=== PATIENT | female | born 1975 | race Caucasian/White ===

== ENCOUNTER → 2017-11-09 09:48 | Outpatient (CLI) | payer OTHER, SELFPAY ==
[2017-11-09 10:13] LABS: Albumin, Serum 3.4 g/dL (3.2-5.0); BUN 12 mg/dL (7-18); BUN/Creat Ratio 10.5 RATIO (10-20); Calcium,Total 8.5 mg/dL (8.5-10.1); Chloride 104 mmol/L (98-107); Creatinine, Serum 1.14 mg/dL (0.55-1.02); EST Glomerular Filtration Rate 55 mL/min (>60); Est Glom Filt Rate - Afr Amer 67 mL/min (>60); Glucose 115 mg/dL (74-106); Phosphorus 3.5 mg/dL (2.5-4.9); Potassium 3.6 mmol/L (3.5-5.1); Sodium Level 137 mmol/L (136-145)
== END ==
PROVIDERS: Family Provider Nurse Practitioner Family; PCP Nurse Practitioner Family; Visit Provider Internal Medicine Nephrology
DX: N18.2 Chronic kidney disease, stage 2 (mild) (principal)
CPT/HCPCS: 36415; 80069

== ENCOUNTER → 2017-11-10 10:36 | Outpatient (CLI) | payer OTHER, SELFPAY ==
[2017-11-10 10:38] LABS: Bacteria 0 SEEN /hpf (None Seen); Mucous, Urine 0 SEEN /hpf (<or=2+)
[2017-11-10 13:30] LABS: Color, Urine Yellow (Yellow); Glucose, Dipstick Normal (Normal); Ketone-Dipstick Negative (Negative); Leukocyte Esterase-Dipstick Negative /ul (Negative); Nitrite-Dipstick Negative (Negative); Occult Blood-Urine 50 /ul (Negative); Protein-Dipstick Negative (Negative); Specific Gravity, Urine 1.005 (1.002-1.030); Urine Bilirubin Dipstick Negative (Negative); Urine Clarity Clear (Clear); Urine Urobilinogen Normal (Normal); Urine pH 6.5 (5.0 - 8.0)
[2017-11-10 13:39] LABS: Red Blood Cells-Urine 0-5 SEEN /hpf (0-5); Squamous Epithelial Cells - UA 0-5 SEEN /hpf (5-10); White Blood Cells 0-5 SEEN /hpf (0-5)
== END ==
PROVIDERS: Family Provider Nurse Practitioner Family; PCP Nurse Practitioner Family; Visit Provider Internal Medicine Nephrology
DX: R31.21 Asymptomatic microscopic hematuria (principal)
CPT/HCPCS: 81001

== ENCOUNTER → 2017-11-29 08:36 | Outpatient (CLI) | payer OTHER, SELFPAY ==
--- NOTE | 2017-11-29 | KI_PTH ---
PATIENT: TIFFANIE MILLS LOC: CT U#:[id number] AGE/SX: 50/F ROOM: RE11/29/[address]: Dr. 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 COMMENT The perihilar variant of FSGS is most commonly a secondary process, however, may occasionally be idiopathic. It has been associated with several disease processes including hypertension, obesity, drug use and infection. Please correlate clinically. MICROSCOPIC DESCRIPTION Sections are evaluated with H & E, PAS, Tobias and trichrome stains. 12 glomeruli are present. 1 glomerulus is globally sclerotic. 6 glomeruli demonstrate segmental sclerosis of the perihilar region. Remaining glomeruli demonstrate delicate capillary loops with no cellular proliferation or active glomerulitis. There is approximately 10% interstitial fibrosis. Tubules are generally preserved. There is no significant interstitial inflammatory infiltrate. Arterioles show moderate medial thickening. No arteritis is identified. IMMUNOFLUORESCENCE: There is no specific glomerular staining to indicate the deposition of immunoglobulins (IgG, IgA or IgM) or complement components (C3 or C1q). Glomerular fibrin deposition is not increased. ELECTRON MICROSCOPY: 1 glomerulus is evaluated. Mesangial areas are not significantly expanded and no discrete electron dense deposits are identified. Glomerular capillary loops demonstrate basement membranes of normal thickness with no discrete electron dense deposits. There is moderate (~3040%) effacement of overlying epithelial cell foot processes. Tubular basement membranes are of normal thickness with no discrete electron dense deposits. GROSS DESCRIPTION The specimen is sent entirely to [facility] for diagnosis. The specimen is received in transport medium and consists of four cores of borges renal tissue that range in length from 1.5 to 1.8 cm. The cores are divided for histology, immunofluorescence and electron microscopy.
[2017-11-29 08:52] LABS: Hematocrit 42.2 % (37-47); Hemoglobin 13.6 g/dl (12.0-15.0); Mean Corp Hgb Conc 32.2 g/gl (32-36); Mean Corpuscular Hgb 28.8 pg (27.0-32.0); Mean Corpuscular Volume 89.2 fL (81-99); Mean Platelet Vol. 9.1 fl (6.2-12.0); Platelet Count 292 K/mm3 (150-450); RBC Distribution Width CV 14.2 % (11.6-14.6); RBC Distribution Width SD 46.3 fl (35.1-43.9); Red Blood Count 4.73 M/mm3 (4.2-5.4); Scan Indicated on CBC? Y/N NO; White Blood Count 8.9 K/mm3 (4.4-11.0)
--- NOTE | 2017-11-29 08:53 | CT_ITS ---
PROCEDURE: CT GUIDED PERCUTANEOUS KIDNEY BIOPSY. DATE: November 29, 2017. INDICATION: Female, 42 years old. Hematuria. PHYSICIAN: Marcelo Webebr M.D. MEDICATIONS: 2 mg of Versed and 50 mcg of fentanyl intravenously. Conscious sedation protocol was followed. Conscious sedation was started at 10:10 AM and terminated at 10:27 AM. The patient was independently monitored by the department ACCESS SITE: Mid lower pole of left kidney. NEEDLE: 18-gauge core biopsy needle. SPECIMEN: 4 18-gauge cores. EBL: None. COMPLICATIONS: None immediate. RADIATION DOSAGE (If Supplied By Facility): CTDIvol = ( 18.6 ) mGy, DLP = ( 398.81 ) mGycm The risks, benefits, and alternatives to the procedure and sedation were explained to the patient. The specific risk of hemorrhage requiring further treatment or intervention was detailed and accepted. Written informed consent was obtained. The patient was placed on the CT table in the prone position. Multiple axial images were obtained from the lung base through the caudal extent of the kidneys. An appropriate entry site was identified and a dar made on the skin. The skin overlying the [ right] posterior flank was prepped and draped in sterile fashion. 1% lidocaine was administered subcutaneously for local anesthesia. Initially, a 22 gauge needle was advanced and CT images confirmed good needle position. The 22 gauge needle was then exchanged for an 17 gauge introducer needle which was advanced. Repeat CT images confirmed good needle trajectory and tip position. The introducer needle was then advanced into the periphery of the inferior renal pole, and CT images were again obtained to confirm exact tip location. The inner stylet of the introducer needle was then removed and an 18 gauge coaxial needle was advanced thru the introducer needle and biopsy performed. A total of [4 ] passes were performed and the specimen collected was sent to Pathology for further evaluation. The needle was withdrawn. Hemostasis was achieved with manual compression and a sterile dressing was applied. Repeat CT images of the biopsy area was performed which demonstrated no gross bleeding or hematoma. The patient tolerated the procedure well without immediate complications. The patient was transported to the [floor/recovery area] in stable condition. CT/Biopsy/Inj or Needle Placement IMPRESSION: Successful CT guided percutaneous kidney biopsy. Electronically Signed: Marcelo Webber MD at 11:03 EDT Tel [phone], Service support ,
[2017-11-29 08:58] LABS: Prothrombin Time (Protime)PT. 12.9 SECONDS (11.7-14.9)
[2017-11-29 09:49] VITALS: BP 123/87; PULSE 92; RESP 16; O2SAT 99; BMI 23.0
[2017-11-29 11:46] VITALS: BP 112/71; PULSE 93; RESP 14; O2SAT 99
== END ==
PROVIDERS: Family Provider Nurse Practitioner Family; PCP Nurse Practitioner Family; Visit Provider Internal Medicine Nephrology
DX: R31.21 Asymptomatic microscopic hematuria (principal)
CPT/HCPCS: 50200; 77012; 85027; 85610; 85730; 88305; 88313; 88346; 88348; 99156; 99157; J7040; A4216

== ENCOUNTER → 2017-12-13 15:21 | Outpatient (CLI) | payer OTHER, SELFPAY ==
[2017-12-13 19:19] LABS: Bacteria 0 SEEN /hpf (None Seen); Mucous, Urine 0 SEEN /hpf (<or=2+); White Blood Cells 0 SEEN /hpf (0-5)
[2017-12-13 19:47] LABS: Color, Urine Yellow (Yellow); Glucose, Dipstick Normal (Normal); Ketone-Dipstick Negative (Negative); Leukocyte Esterase-Dipstick 25 /ul (Negative); Nitrite-Dipstick Negative (Negative); Occult Blood-Urine 150 /ul (Negative); Protein-Dipstick 15 mg/dl (Negative); Urine Bilirubin Dipstick Negative (Negative); Urine Clarity Clear (Clear); Urine Urobilinogen Normal (Normal); Urine pH 6.5 (5.0 - 8.0)
[2017-12-13 19:54] LABS: Red Blood Cells-Urine 0-5 SEEN /hpf (0-5); Squamous Epithelial Cells - UA 0-5 SEEN /hpf (5-10)
== END ==
PROVIDERS: Family Provider Nurse Practitioner Family; PCP Nurse Practitioner Family; Visit Provider Physician Assistant Surgical
DX: R35.0 Frequency of micturition (principal)
CPT/HCPCS: 81001; 87086; 87088

== ENCOUNTER → 2017-12-26 14:11 | Outpatient (CLI) | payer OTHER, SELFPAY ==
[2017-12-26 14:14] LABS: Bacteria 0 SEEN /hpf (None Seen); Mucous, Urine 0 SEEN /hpf (<or=2+); White Blood Cells 0 SEEN /hpf (0-5)
[2017-12-26 15:03] LABS: Color, Urine Straw (Yellow); Glucose, Dipstick Normal (Normal); Ketone-Dipstick Negative (Negative); Leukocyte Esterase-Dipstick Negative /ul (Negative); Nitrite-Dipstick Negative (Negative); Occult Blood-Urine 150 /ul (Negative); Protein-Dipstick Negative (Negative); Urine Bilirubin Dipstick Negative (Negative); Urine Clarity Sl. Cloudy (Clear); Urine Urobilinogen Normal (Normal)
[2017-12-26 15:12] LABS: Red Blood Cells-Urine 10-25 SEEN /hpf (0-5); Squamous Epithelial Cells - UA 0-5 SEEN /hpf (5-10)
== END ==
PROVIDERS: Family Provider Nurse Practitioner Family; PCP Nurse Practitioner Family; Visit Provider Internal Medicine Nephrology
DX: R80.9 Proteinuria, unspecified (principal)
CPT/HCPCS: 81001

== ENCOUNTER → 2018-01-09 17:49 | Outpatient (CLI) | payer OTHER, SELFPAY ==
--- NOTE | 2018-01-09 13:30 | CYSPIN_PTH ---
PATIENT: TIFFANIE MILLS [facility] U#:[id number] AGE/SX: 50/F ROOM: RE01/09/[address]: Dr. Ronny Whitehead MD : 1975 BED: DIS: SPEC #: [id number] RECD: 01/09/18 17:02 STATUS: NETO MARIO #: [id number] EVE: 01/09/18 13:[address]: Ronny Whitehead DEPT: CYTOLOGY RECD BY: Dao Meeks ENTERED: 01/10/18 08:49 SP TYPE: CYSPIN FL OTHR DR: Ariela Barber, GAUGER CHIEF-C Tissues: Urine Procedures: Pap Stain (control) Special Stain Group II Cytospin Fluid HEADER OPERATION: Not noted PRE-OP DIAGNOSIS: Hematuria R31.1 TISSUE SUBMITTED: Urine for cytology DIAGNOSIS CYTOLOGY Urine for cytology (cytospin): Negative for malignant cells. AM:neena 01/11/18 CYTOLOGY STUDY Slides are reviewed. CYTOLOGY GROSS Received is 60 ml of clear yellow fluid labeled with the patient's name and and designated per the requisition as urine. Submitted for cytology preparation. 01/10/18 TC:5 CPT: 52368
[2018-01-09 17:51] LABS: Cytology, Body Fluid / CSF SEE PATHOLOGY REPORT
== END ==
PROVIDERS: Visit Provider Urology
DX: R31.1 Benign essential microscopic hematuria (principal)
CPT/HCPCS: 88108; 88313

== ENCOUNTER → 2018-03-31 15:22 | Outpatient (CLI) | payer OTHER, SELFPAY ==
--- NOTE | 2018-03-31 15:24 | BI_ITS ---
MAMMOGRAPHY - BILATERAL SCREENING REASON FOR EXAM: Female, 42 years old. Routine annual screening examination. PERTINENT HISTORY: Minimal left excisional and left stereotactic breast biopsies. TECHNIQUE: Digital bilateral breast senthil (3D mammographic acquisition) in the CC and MLO projections. 2-D mediolateral oblique (MLO) and craniocaudad (CC) views of both breasts were obtained. CAD: Full Field Digital Mammography with Computer Added Detection was performed. COMPARISON: Comparison is made with prior study dated February 28, 2017 and February 17, 2016. FINDINGS: Breast Composition: The breasts are heterogeneously dense, which may obscure small masses. There are no dominant masses or suspicious calcifications. A tissue clip marker is seen and a small nodular density in the axillary region of the left breast. Stable appearance of the small bilateral axillary lymph nodes. No other significant abnormalities are identified. There has been no significant change since the prior study. BI/SCREENING MAMM (CAD), BILAT IMPRESSION: Stable bilateral screening mammogram. Yearly follow-up mammogram recommended. (A) ASSESSMENT CATEGORY: BIRADS Category 2: Benign. A letter regarding these results will be sent to the patient by the facility within 30 days. Approximately 10% of breast cancers are not detected by mammography. A normal mammogram should not delay biopsy of a clinically suspicious abnormality. [id number] Electronically Signed: Marcelo Webber MD at 8:28 EDT Tel [phone], Service support ,
== END ==
PROVIDERS: PCP Nurse Practitioner Family; Visit Provider Nurse Practitioner Family
DX: Z12.31 Encounter for screening mammogram for malignant neoplasm of breast (principal)
CPT/HCPCS: 77063; 77067

== ENCOUNTER → 2018-05-01 11:27 | Outpatient (CLI) | payer OTHER, SELFPAY ==
[2018-05-01 11:29] LABS: Bacteria 0 SEEN /hpf (None Seen); Mucous, Urine 0 SEEN /hpf (<or=2+); White Blood Cells 0 SEEN /hpf (0-5)
[2018-05-01 11:42] LABS: Color, Urine Yellow (Yellow); Glucose, Dipstick Normal (Normal); Ketone-Dipstick Negative (Negative); Leukocyte Esterase-Dipstick Negative /ul (Negative); Nitrite-Dipstick Negative (Negative); Occult Blood-Urine 150 /ul (Negative); Protein-Dipstick Negative (Negative); Urine Bilirubin Dipstick Negative (Negative); Urine Clarity Clear (Clear); Urine Urobilinogen Normal (Normal)
[2018-05-01 11:49] LABS: Red Blood Cells-Urine 10-25 SEEN /hpf (0-5); Squamous Epithelial Cells - UA 0-5 SEEN /hpf (5-10)
[2018-05-01 12:01] LABS: Albumin, Serum 3.4 g/dL (3.2-5.0); BUN 13 mg/dL (7-18); BUN/Creat Ratio 10.6 RATIO (10-20); Calcium,Total 8.8 mg/dL (8.5-10.1); Chloride 106 mmol/L (98-107); Creatinine, Serum 1.23 mg/dL (0.55-1.02); EST Glomerular Filtration Rate 50 mL/min (>60); Est Glom Filt Rate - Afr Amer 61 mL/min (>60); Glucose 89 mg/dL (74-106); Phosphorus 3.6 mg/dL (2.5-4.9); Potassium 3.8 mmol/L (3.5-5.1); Sodium Level 138 mmol/L (136-145)
== END ==
PROVIDERS: Family Provider Nurse Practitioner Family; PCP Nurse Practitioner Family; Visit Provider Internal Medicine Nephrology
DX: R31.21 Asymptomatic microscopic hematuria (principal); N18.2 Chronic kidney disease, stage 2 (mild)
CPT/HCPCS: 36415; 80069; 81001

== ENCOUNTER → 2018-06-05 08:19 | Outpatient (CLI) | payer OTHER, SELFPAY ==
[2018-06-05 08:43] LABS: Mucous, Urine 0 SEEN /hpf (<or=2+)
[2018-06-05 08:48] LABS: Color, Urine Yellow (Yellow); Glucose, Dipstick Normal (Normal); Ketone-Dipstick Negative (Negative); Leukocyte Esterase-Dipstick 500 /ul (Negative); Nitrite-Dipstick Negative (Negative); Occult Blood-Urine 250 /ul (Negative); Protein-Dipstick 15 mg/dl (Negative); Specific Gravity, Urine 1.015 (1.002-1.030); Urine Bilirubin Dipstick Negative (Negative); Urine Clarity Sl. Cloudy (Clear); Urine Urobilinogen Normal (Normal)
[2018-06-05 09:07] LABS: Bacteria 1+ /hpf (None Seen); Red Blood Cells-Urine 25-50 SEEN /hpf (0-5); White Blood Cells >100 SEEN /hpf (0-5)
[2018-06-05 09:12] LABS: Squamous Epithelial Cells - UA 0-5 SEEN /hpf (5-10)
== END ==
PROVIDERS: Family Provider Nurse Practitioner Family; PCP Nurse Practitioner Family; Visit Provider Physician Assistant Surgical
DX: R35.0 Frequency of micturition (principal)
CPT/HCPCS: 81001; 87086; 87088

== ENCOUNTER → 2018-06-12 17:54 | Outpatient (CLI) | payer OTHER, SELFPAY | PROVIDERS: Family Provider Nurse Practitioner Family; PCP Nurse Practitioner Family; Referring Provider Urology; Visit Provider Urology | DX: R31.9 Hematuria, unspecified (principal) | CPT/HCPCS: 87086 ==

== ENCOUNTER → 2018-10-03 13:40 | Outpatient (CLI) | payer OTHER, SELFPAY ==
[2018-06-05 06:18] VITALS: BMI 26.9
[2018-10-03 13:44] LABS: Mucous, Urine 0 SEEN /hpf (<or=2+); Squamous Epithelial Cells - UA 0 SEEN /hpf (5-10); White Blood Cells 0 SEEN /hpf (0-5)
[2018-10-03 14:15] LABS: Albumin, Serum 3.4 g/dL (3.2-5.0); BUN 15 mg/dL (7-18); BUN/Creat Ratio 11.9 RATIO (10-20); Calcium,Total 8.7 mg/dL (8.5-10.1); Chloride 104 mmol/L (98-107); Creatinine, Serum 1.26 mg/dL (0.55-1.02); EST Glomerular Filtration Rate 49 mL/min (>60); Est Glom Filt Rate - Afr Amer 59 mL/min (>60); Glucose 135 mg/dL (74-106); Phosphorus 3.7 mg/dL (2.5-4.9); Potassium 3.8 mmol/L (3.5-5.1); Sodium Level 139 mmol/L (136-145)
[2018-10-03 15:25] LABS: Glucose, Dipstick Normal (Normal); Ketone-Dipstick Negative (Negative); Leukocyte Esterase-Dipstick Negative /ul (Negative); Nitrite-Dipstick Negative (Negative); Occult Blood-Urine 25 /ul (Negative); Protein-Dipstick Negative (Negative); Urine Bilirubin Dipstick Negative (Negative); Urine Urobilinogen Normal (Normal); Urine pH 6.5 (5.0 - 8.0)
[2018-10-03 15:26] LABS: Color, Urine Straw (Yellow); Urine Clarity Clear (Clear)
[2018-10-03 15:31] LABS: Bacteria RARE /hpf (None Seen); Red Blood Cells-Urine 0-5 SEEN /hpf (0-5)
== END ==
PROVIDERS: Family Provider Nurse Practitioner Family; PCP Nurse Practitioner Family; Visit Provider Internal Medicine Nephrology
DX: R31.21 Asymptomatic microscopic hematuria (principal)
CPT/HCPCS: 36415; 80069; 81001

== ENCOUNTER → 2019-01-31 09:24 | Outpatient (CLI) | payer OTHER, SELFPAY ==
[2018-06-05 06:18] VITALS: BMI 26.9
[2019-01-31 09:28] LABS: Bacteria 0 SEEN /hpf (None Seen); Mucous, Urine 0 SEEN /hpf (<or=2+); White Blood Cells 0 SEEN /hpf (0-5)
[2019-01-31 10:10] LABS: Color, Urine Straw (Yellow); Glucose, Dipstick Normal (Normal); Ketone-Dipstick Negative (Negative); Leukocyte Esterase-Dipstick Negative /ul (Negative); Nitrite-Dipstick Negative (Negative); Occult Blood-Urine 25 /ul (Negative); Protein-Dipstick Negative (Negative); Specific Gravity, Urine 1.005 (1.002-1.030); Urine Bilirubin Dipstick Negative (Negative); Urine Clarity Clear (Clear); Urine Urobilinogen Normal (Normal); Urine pH 6.5 (5.0 - 8.0)
[2019-01-31 10:43] LABS: Red Blood Cells-Urine 0-5 SEEN /hpf (0-5); Squamous Epithelial Cells - UA 0-5 SEEN /hpf (5-10)
[2019-01-31 11:30] LABS: Albumin, Serum 3.4 g/dL (3.2-5.0); BUN 15 mg/dL (7-18); BUN/Creat Ratio 11.6 RATIO (10-20); Calcium,Total 8.9 mg/dL (8.5-10.1); Chloride 107 mmol/L (98-107); Creatinine, Serum 1.29 mg/dL (0.55-1.02); EST Glomerular Filtration Rate 47 mL/min (>60); Est Glom Filt Rate - Afr Amer 57 mL/min (>60); Glucose 94 mg/dL (74-106); Phosphorus 3.6 mg/dL (2.5-4.9); Potassium 4.1 mmol/L (3.5-5.1); Sodium Level 140 mmol/L (136-145)
== END ==
PROVIDERS: Family Provider Nurse Practitioner Family; PCP Nurse Practitioner Family; Visit Provider Internal Medicine Nephrology
DX: R31.21 Asymptomatic microscopic hematuria (principal)
CPT/HCPCS: 36415; 80069; 81001

== ENCOUNTER → 2019-05-09 13:29 | Outpatient (CLI) | payer OTHER, SELFPAY ==
--- NOTE | 2019-05-09 13:34 | BI_ITS ---
MAMMOGRAPHY - BILATERAL SCREENING REASON FOR EXAM: Female, 43 years old. Routine annual screening examination. PERTINENT HISTORY: Non-contributory. Remote left excisional and left stereotactic breast biopsies. TECHNIQUE: Digital bilateral breast emily (3D mammographic acquisition) in the CC and MLO projections. 2-D mediolateral oblique (MLO) and craniocaudad (CC) views of both breasts were obtained. CAD: Full Field Digital Mammography with Computer Added Detection was performed. COMPARISON: Comparison is made with prior examination dated March 31, 2018 and February 28, 2017. FINDINGS: Breast Composition: The breasts are heterogeneously dense, which may obscure small masses. I suspect a 1 cm x 1.4 cm nodular density in the upper central portion of the right breast. Correlation with ultrasound is recommended. A tissue clip marker is once again seen within a 1.3 cm nodule in the deep upper lateral aspect of the left breast. This is unchanged. No other significant abnormalities are identified. BI/SCREEN MAMM (CAD) W/EMILY BILAT IMPRESSION: Stable 1.3 cm nodule in the upper central portion of the left breast with a tissue clip within the. Findings suggestive of a new 1.4 cm well-defined nodule in the upper lateral aspect of the right breast. Correlation with ultrasound is recommended. ASSESSMENT CATEGORY: BIRADS Category 0: Incomplete. Need additional imaging evaluation. A letter regarding these results will be sent to the patient by the facility within 30 days. Approximately 10% of breast cancers are not detected by mammography. A normal mammogram should not delay biopsy of a clinically suspicious abnormality. [id number] Electronically Signed: Marcelo Webber, at 8:24 EDT , Service support ,
== END ==
PROVIDERS: Family Provider Family Medicine; PCP Family Medicine; Referring Provider Family Medicine; Visit Provider Family Medicine
DX: Z12.31 Encounter for screening mammogram for malignant neoplasm of breast (principal)
CPT/HCPCS: 77063; 77067

== ENCOUNTER → 2019-05-15 17:03 | Outpatient (CLI) | payer OTHER, SELFPAY ==
[2018-06-05 06:18] VITALS: BMI 26.9
== END ==
PROVIDERS: Family Provider Family Medicine; PCP Family Medicine
DX: R30.0 Dysuria (principal)
CPT/HCPCS: 87086; 87088

== ENCOUNTER → 2019-05-17 15:15 | Outpatient (CLI) | payer OTHER, SELFPAY ==
[2018-06-05 06:18] VITALS: BMI 26.9
--- NOTE | 2019-05-17 15:17 | US_ITS ---
STUDY: ULTRASOUND BREAST - RIGHT REASON FOR EXAM: Female, 43 years old. Abnormal screening mammogram. TECHNIQUE: Axial and longitudinal images of the RIGHT breast were performed with a high resolution ultrasound transducer. COMPARISON: Comparison is made with prior mammogram dated May 09, 2019. FINDINGS: RIGHT Breast: The mammographic abnormality corresponds to a 1 cm x 1.1 cm x 0.7 cm cyst at the 11:00 position of the breast at 2 cm from nipple. US/Breast Limited Unilateral IMPRESSION: The mammographic abnormality corresponds to a 1 cm x 1.1 cm x 0.7 cm cyst at the 11:00 position of the breast at 2 cm from the nipple. ASSESSMENT CATEGORY: BIRADS Category 2: Benign. A letter regarding these results will be sent to the patient by the facility within 30 days. Electronically Signed: Marcelo Webber, at 16:00 EDT , Service support ,
== END ==
PROVIDERS: Family Provider Family Medicine; PCP Family Medicine; Referring Provider Family Medicine; Visit Provider Family Medicine
DX: N63.11 Unspecified lump in the right breast, upper outer quadrant (principal)
CPT/HCPCS: 76642

== ENCOUNTER → 2019-05-30 11:36 | Outpatient (CLI) | payer OTHER, SELFPAY ==
[2018-06-05 06:18] VITALS: BMI 26.9
[2019-06-06 12:59] LABS: HPV APTIMA, High Risk Negative (Negative)
== END ==
PROVIDERS: Visit Provider Obstetrics & Gynecology
DX: Z12.4 Encounter for screening for malignant neoplasm of cervix (principal)
CPT/HCPCS: 87624; 88175; G0145

== ENCOUNTER → 2019-09-05 08:57 | Outpatient (CLI) | payer OTHER, SELFPAY ==
[2019-07-13 07:51] VITALS: BMI 26.9
[2019-09-05 11:02] LABS: Mucous, Urine 0 SEEN /hpf (<or=2+); Red Blood Cells-Urine 0 SEEN /hpf (0-5); White Blood Cells 0 SEEN /hpf (0-5)
[2019-09-05 11:27] LABS: Anion Gap 8 (5-15); BUN 12 mg/dL (7-18); BUN/Creat Ratio 10.2 RATIO (10-20); Calcium,Total 8.5 mg/dL (8.5-10.1); Chloride 105 mmol/L (98-107); Creatinine, Serum 1.18 mg/dL (0.55-1.02); EST Glomerular Filtration Rate 52 mL/min (>60); Est Glom Filt Rate - Afr Amer 63 mL/min (>60); Glucose 93 mg/dL (74-106); Sodium Level 140 mmol/L (136-145)
[2019-09-05 13:10] LABS: Glucose, Dipstick Normal (Normal); Ketone-Dipstick Negative (Negative); Leukocyte Esterase-Dipstick Negative /ul (Negative); Nitrite-Dipstick Negative (Negative); Occult Blood-Urine 50 /ul (Negative); Protein-Dipstick Negative (Negative); Urine Bilirubin Dipstick Negative (Negative); Urine Urobilinogen Normal (Normal); Urine pH 6.5 (5.0 - 8.0)
[2019-09-05 13:14] LABS: Color, Urine YELLOW (Yellow); Urine Clarity Clear (Clear)
[2019-09-05 13:35] LABS: Squamous Epithelial Cells - UA 0-5 SEEN /hpf (5-10)
[2019-09-05 13:36] LABS: Bacteria RARE /hpf (None Seen)
== END ==
PROVIDERS: Visit Provider Internal Medicine Nephrology
DX: R31.21 Asymptomatic microscopic hematuria (principal)
CPT/HCPCS: 80048; 81001

== ENCOUNTER → 2020-04-11 | Outpatient (CLI) | payer OTHER, SELFPAY ==
[2019-10-13 08:29] VITALS: BMI 26.9
== END | disposition home or self-care (01) ==
LOC: LABSPEC 13:26
PROVIDERS: Referring Provider Family Medicine; Visit Provider Family Medicine
DX: J39.2 Other diseases of pharynx (principal)
CPT/HCPCS: 87070

== ENCOUNTER → 2020-05-15 | Outpatient (CLI) | payer OTHER, SELFPAY ==
[2019-07-13 07:51] VITALS: BMI 26.9
[2019-10-13 08:29] VITALS: BMI 26.9
[2020-05-15 08:03] LABS: Albumin, Serum 3.3 g/dL (3.2-5.0); BUN 10 mg/dL (7-18); BUN/Creat Ratio 8.7 RATIO (10-20); Calcium,Total 8.1 mg/dL (8.5-10.1); Chloride 108 mmol/L (98-107); Creatinine, Serum 1.15 mg/dL (0.55-1.02); EST Glomerular Filtration Rate 54 mL/min (>60); Est Glom Filt Rate - Afr Amer 65 mL/min (>60); Glucose 69 mg/dL (74-106); Phosphorus 1.9 mg/dL (2.5-4.9); Potassium 3.4 mmol/L (3.5-5.1); Sodium Level 140 mmol/L (136-145)
== END | disposition home or self-care (01) ==
LOC: LABSPEC 07:43
PROVIDERS: Referring Provider Internal Medicine Nephrology; Visit Provider Internal Medicine Nephrology
DX: N18.3 Chronic kidney disease, stage 3 (moderate) (principal)
CPT/HCPCS: 80069

== ENCOUNTER → 2020-06-10 | Outpatient (CLI) | payer OTHER, SELFPAY ==
[2019-10-13 08:29] VITALS: BMI 26.9
[2020-06-13 17:07] LABS: HPV Reflexed? NOT INDICATED
== END | disposition home or self-care (01) ==
LOC: LABSPEC 10:30
PROVIDERS: Visit Provider Obstetrics & Gynecology
DX: Z12.4 Encounter for screening for malignant neoplasm of cervix (principal)
CPT/HCPCS: 88175; G0145

== ENCOUNTER → 2020-06-27 | Outpatient (CLI) | payer OTHER, SELFPAY ==
[2019-10-13 08:29] VITALS: BMI 26.9
--- NOTE | 2020-06-27 14:28 | BI_ITS ---
MAMMOGRAPHY - BILATERAL SCREENING REASON FOR EXAM: Female, 44 years old. Routine annual screening examination. PERTINENT HISTORY: Non-contributory. History of prior left excisional breast biopsy and left stereotactic breast biopsy. Recent right breast ultrasound guided biopsy. TECHNIQUE: Digital bilateral breast emily (3D mammographic acquisition) in the CC and MLO projections. 2-D mediolateral oblique (MLO) and craniocaudad (CC) views of both breasts were obtained. CAD: Full Field Digital Mammography with Computer Added Detection was performed. COMPARISON: Comparison is made with prior examination 05/09/2019 and 03/31/2018. FINDINGS: Breast Composition: The breasts are heterogeneously dense, which may obscure small masses. There is a 1.4 cm x 1.6 cm well-defined nodule in the upper central portion of the right breast. This has increased slightly in size as compared to prior study. Prior ultrasound demonstrated this to be a small cyst. A tissue clip marker is once again seen in the 1.2 cm x 1.2 cm nodule in the axillary region of the left breast. No other significant abnormalities are identified. BI/SCREEN MAMM (CAD) W/EMILY BILAT IMPRESSION: Slightly enlarged well-defined nodule in the upper central portion of the right breast as described. Prior sonogram demonstrated this to be a small cyst. Yearly follow-up mammogram recommended. (A) ASSESSMENT CATEGORY: BIRADS Category 2: Benign. A letter regarding these results will be sent to the patient by the facility within 30 days. Approximately 10% of breast cancers are not detected by mammography. A normal mammogram should not delay biopsy of a clinically suspicious abnormality. [id number] Electronically Signed: Marcelo Webber, at 8:30 EDT , Service support ,
== END | disposition home or self-care (01) ==
LOC: OPBI 14:26
PROVIDERS: PCP Family Medicine; Referring Provider Obstetrics & Gynecology; Visit Provider Obstetrics & Gynecology
DX: Z12.31 Encounter for screening mammogram for malignant neoplasm of breast (principal)
CPT/HCPCS: 77063; 77067

== ENCOUNTER → 2021-01-07 14:21 | Outpatient (CLI) | payer OTHER, SELFPAY ==
[2019-10-13 08:29] VITALS: BMI 26.9
[2021-01-07 14:34] LABS: Hematocrit 40.8 % (37-47); Hemoglobin 13.5 g/dL (12.0-15.0); Mean Corp Hgb Conc 33.1 g/dL (32-36); Mean Corpuscular Hgb 30.3 pg (27.0-32.0); Mean Corpuscular Volume 91.5 fL (81-99); Mean Platelet Vol. 8.9 fl (6.2-12.0); Platelet Count 345 K/mm3 (150-450); RBC Distribution Width SD 47.4 fl (35.1-43.9); Red Blood Count 4.46 M/mm3 (4.2-5.4); White Blood Count 9.2 K/mm3 (4.4-11.0)
[2021-01-07 14:46] LABS: Albumin, Serum 3.6 g/dL (3.2-5.0); BUN 19 mg/dL (7-18); BUN/Creat Ratio 17.1 RATIO (10-20); Calcium,Total 8.7 mg/dL (8.5-10.1); Chloride 102 mmol/L (98-107); Creatinine, Serum 1.11 mg/dL (0.55-1.02); EST Glomerular Filtration Rate 56 mL/min (>60); Est Glom Filt Rate - Afr Amer 68 mL/min (>60); Glucose 88 mg/dL (74-106); Phosphorus 3.7 mg/dL (2.5-4.9); Potassium 3.8 mmol/L (3.5-5.1); Sodium Level 136 mmol/L (136-145)
[2021-01-07 15:20] LABS: Creatinine, Urine (random) < 13.00 mg/dL (NO RANGE EST.); Protein, Urine (Random) < 6.0 mg/dL (<11.9)
== END ==
LOC: LAB.FUTURE 14:21 → LAB 14:21
PROVIDERS: PCP Family Medicine; Referring Provider Internal Medicine Nephrology; Visit Provider Internal Medicine Nephrology
DX: N04.1 Nephrotic syndrome with focal and segmental glomerular lesions (principal); N18.30 Chronic kidney disease, stage 3 unspecified
CPT/HCPCS: 36415; 80069; 82570; 84156; 85027

== ENCOUNTER → 2021-06-12 | Outpatient (CLI) | payer OTHER, SELFPAY ==
[2021-06-17 09:29] LABS: HPV APTIMA, High Risk Negative (Negative)
== END | disposition home or self-care (01) ==
LOC: LABSPEC 12:32
PROVIDERS: PCP Family Medicine; Visit Provider Obstetrics & Gynecology
DX: Z12.4 Encounter for screening for malignant neoplasm of cervix (principal)
CPT/HCPCS: 87624; 88175; G0145

== ENCOUNTER → 2021-06-26 07:57 | Outpatient (CLI) | payer OTHER, SELFPAY ==
--- NOTE | 2021-06-26 07:59 | BI_ITS ---
MAMMOGRAPHY - BILATERAL SCREENING REASON FOR EXAM: Female, 45 years old. Routine annual screening examination. PERTINENT HISTORY: Non-contributory. Remote left excisional and stereotactic breast biopsies. TECHNIQUE: Digital bilateral breast emily (3D mammographic acquisition) in the CC and MLO projections. 2-D mediolateral oblique (MLO) and craniocaudad (CC) views of both breasts were obtained. CAD: Full Field Digital Mammography with Computer Added Detection was performed. COMPARISON: Comparison is made with prior study 06/27/2020 and 05/09/2019. FINDINGS: Breast Composition: The breasts are heterogeneously dense, which may obscure small masses. Persistent nodule in the upper central portion of the right breast. It presently measures 1.8 cm. Prior ultrasound demonstrated this to be a small cyst. A tissue clip marker is once again seen within a 1.2 cm nodule in the axillary region of the left breast. No other significant abnormalities are identified. There has been no significant change since the prior study. BI/SCRN MAMM (CAD)W/EMILY BILAT IMPRESSION: Stable bilateral screening mammogram. Yearly follow-up mammogram recommended. (A) ASSESSMENT CATEGORY: BIRADS Category 2: Benign. A letter regarding these results will be sent to the patient by the facility within 30 days. Approximately 10% of breast cancers are not detected by mammography. A normal mammogram should not delay biopsy of a clinically suspicious abnormality. [id number] Electronically Signed: Marcelo Webber MD at 8:41 EDT , Service support ,
== END ==
PROVIDERS: PCP Family Medicine; Referring Provider Obstetrics & Gynecology; Visit Provider Obstetrics & Gynecology
DX: Z12.31 Encounter for screening mammogram for malignant neoplasm of breast (principal)
CPT/HCPCS: 77063; 77067

== ENCOUNTER 2021-11-06 13:32 | Outpatient (CLI) | payer OTHER, SELFPAY ==
[2019-10-13 08:29] VITALS: BMI 26.9
[2021-11-06 13:37] LABS: Hematocrit 40.8 % (37-47); Hemoglobin 13.4 g/dL (12.0-15.0); Mean Corp Hgb Conc 32.8 g/dL (32-36); Mean Corpuscular Hgb 29.6 pg (27.0-32.0); Mean Corpuscular Volume 90.3 fL (81-99); Mean Platelet Vol. 9.1 fl (6.2-12.0); Platelet Count 309 K/mm3 (150-450); RBC Distribution Width SD 46.7 fl (35.1-43.9); Red Blood Count 4.52 M/mm3 (4.2-5.4); White Blood Count 10.4 K/mm3 (4.4-11.0)
[2021-11-06 13:49] LABS: Protein, Urine (Random) < 6.0 mg/dL (<11.9)
[2021-11-06 14:03] LABS: Albumin, Serum 3.7 g/dL (3.2-5.0); BUN 20 mg/dL (7-18); BUN/Creat Ratio 17.4 RATIO (10-20); Calcium,Total 8.6 mg/dL (8.5-10.1); Chloride 106 mmol/L (98-107); Creatinine, Serum 1.15 mg/dL (0.55-1.02); EST Glomerular Filtration Rate 54 mL/min (>60); Est Glom Filt Rate - Afr Amer 65 mL/min (>60); Glucose 87 mg/dL (74-106); Phosphorus 3.4 mg/dL (2.5-4.9); Potassium 3.7 mmol/L (3.5-5.1); Sodium Level 139 mmol/L (136-145)
== END 2021-11-06 23:59 | disposition home or self-care (01) ==
LOC: LAB.FUTURE 13:33
PROVIDERS: PCP Family Medicine; Visit Provider Internal Medicine Nephrology
DX: N18.30 Chronic kidney disease, stage 3 unspecified (principal); N04.1 Nephrotic syndrome with focal and segmental glomerular lesions
CPT/HCPCS: 36415; 80069; 82570; 84156; 85027

== ENCOUNTER → 2022-06-11 | Outpatient (CLI) | payer OTHER, SELFPAY ==
[2022-06-11 07:27] LABS: Cholesterol 151 mg/dL (200); High Density Lipoprotein 54 mg/dL; Triglycerides 66 mg/dL; Very Low Density Lipoprotein 13 mg/dL (5-40)
[2022-06-11 08:01] LABS: Vitamin D,25 Hydroxy 43.1 ng/mL
== END | disposition home or self-care (01) ==
LOC: LAB 06:36
PROVIDERS: PCP Family Medicine; Visit Provider Family Medicine
DX: Z13.220 Encounter for screening for lipoid disorders (principal); Z13.29 Encounter for screening for other suspected endocrine disorder; Z13.21 Encounter for screening for nutritional disorder
CPT/HCPCS: 36415; 80061; 82306; 84443

== ENCOUNTER → 2022-06-30 | Outpatient (CLI) | payer OTHER, SELFPAY ==
--- NOTE | 2022-06-30 14:09 | BI_ITS ---
MAMMOGRAPHY - BILATERAL SCREENING REASON FOR EXAM: Female, 46 years old. Routine annual screening examination. PERTINENT HISTORY: Non-contributory. Remote left excisional breast biopsy. Prior left stereotactic breast biopsy. TECHNIQUE: Digital bilateral breast emily (3D mammographic acquisition) in the CC and MLO projections. 2-D mediolateral oblique (MLO) and craniocaudad (CC) views of both breasts were obtained. CAD: Full Field Digital Mammography with Computer Added Detection was performed. COMPARISON: Comparison is made with prior study dated 06/26/2021 and 06/27/2020. FINDINGS: Breast Composition: The breasts are heterogeneously dense, which may obscure small masses. There is a 2.4 cm x 0.7 cm well-defined nodule in the upper slightly lateral aspect of the right breast. This has increased slightly in size as compared to prior study. This was demonstrated to be a cyst on prior ultrasound. A tissue clip marker is seen within a small nodule in the axillary region of the left breast. No other significant abnormalities are identified. BI/SCRN MAMM (CAD)W/EMILY BILAT IMPRESSION: Slight increased size of the nodule in the right breast as described. This was demonstrated to be a cyst on prior sonogram. ASSESSMENT CATEGORY: BIRADS Category 2: Benign. A letter regarding these results will be sent to the patient by the facility within 30 days. Approximately 10% of breast cancers are not detected by mammography. A normal mammogram should not delay biopsy of a clinically suspicious abnormality. [id number] Electronically Signed: Marcelo Webber MD at 14:59 EDT ,
== END | disposition home or self-care (01) ==
LOC: OPBI 14:07
PROVIDERS: PCP Family Medicine; Visit Provider Obstetrics & Gynecology
DX: Z12.31 Encounter for screening mammogram for malignant neoplasm of breast (principal)
CPT/HCPCS: 77063; 77067

== ENCOUNTER → 2022-07-05 | Outpatient (CLI) | payer OTHER, SELFPAY ==
--- NOTE | 2022-07-05 09:30 | US_ITS ---
STUDY: ULTRASOUND BREAST - RIGHT REASON FOR EXAM: Female, 47 years old. Abnormal screening mammogram. TECHNIQUE: Axial and longitudinal images of the RIGHT breast were performed with a high resolution ultrasound transducer. # OF IMAGES: 6 COMPARISON: Comparison is made with prior study 06/30/2022 and prior ultrasound of the right breast dated 05/17/2019. FINDINGS: RIGHT Breast: The upper outer quadrant of the right breast was examined by ultrasound. There is evidence of a 1.7 cm x 1.7 cm x 1.6 cm cyst at the 11 o''clock position of the breast and 4 cm from the nipple. US/Breast Limited Unilateral IMPRESSION: 1.7 cm x 1.7 cm x 1.6 cm cyst at 11 o''clock position of the breast at 4 cm from nipple. ASSESSMENT CATEGORY: BIRADS Category 2: Benign. A letter regarding these results will be sent to the patient by the facility within 30 days. Electronically Signed: Marcelo Webber MD at 15:14 EDT ,
== END | disposition home or self-care (01) ==
PROVIDERS: PCP Family Medicine; Referring Provider Student in an Organized Health Care Education/Training Program; Visit Provider Student in an Organized Health Care Education/Training Program
DX: R92.8 Other abnormal and inconclusive findings on diagnostic imaging of breast (principal); D24.1 Benign neoplasm of right breast
CPT/HCPCS: 76642

== ENCOUNTER → 2022-08-26 | Outpatient (CLI) | payer OTHER, SELFPAY ==
[2022-08-26 09:11] LABS: Bacteria 0 SEEN /hpf (None Seen); Mucous, Urine 0 SEEN /hpf (<or=2+); White Blood Cells 0 SEEN /hpf (0-5)
[2022-08-26 09:48] LABS: Albumin, Serum 3.6 g/dL (3.2-5.0); BUN 14 mg/dL (7-18); BUN/Creat Ratio 12.8 RATIO (10-20); Calcium,Total 8.8 mg/dL (8.5-10.1); Chloride 105 mmol/L (98-107); Creatinine, Serum 1.09 mg/dL (0.55-1.02); EST Glomerular Filtration Rate 57 mL/min (>60); Est Glom Filt Rate - Afr Amer 69 mL/min (>60); Glucose 98 mg/dL (74-106); Phosphorus 3.3 mg/dL (2.5-4.9); Potassium 3.8 mmol/L (3.5-5.1); Sodium Level 140 mmol/L (136-145)
[2022-08-26 11:41] LABS: Color, Urine Yellow (Yellow); Glucose, Dipstick Normal (Normal); Ketone-Dipstick Negative (Negative); Leukocyte Esterase-Dipstick Negative /ul (Negative); Nitrite-Dipstick Negative (Negative); Occult Blood-Urine 50 /ul (Negative); Protein-Dipstick Negative (Negative); Urine Bilirubin Dipstick Negative (Negative); Urine Clarity Clear (Clear); Urine Urobilinogen Normal (Normal); Urine pH 6.5 (5.0 - 8.0)
[2022-08-26 11:48] LABS: Red Blood Cells-Urine 0-5 SEEN /hpf (0-5); Squamous Epithelial Cells - UA 0-5 SEEN /hpf (5-10)
[2022-08-26 12:25] LABS: Protein, Urine (Random) < 6.0 mg/dL (<11.9)
== END | disposition home or self-care (01) ==
PROVIDERS: PCP Family Medicine; Visit Provider Internal Medicine Nephrology
DX: N18.30 Chronic kidney disease, stage 3 unspecified (principal)
CPT/HCPCS: 36415; 80069; 81001; 82570; 84156

== ENCOUNTER → 2022-12-10 | Outpatient (CLI) | payer OTHER, SELFPAY ==
[2022-12-10 15:53] LABS: Hemoglobin A1c 5.4 % (3.8-5.6)
== END | disposition home or self-care (01) ==
LOC: WOBLAB 14:37
PROVIDERS: PCP Family Medicine; Visit Provider Student in an Organized Health Care Education/Training Program
DX: Z01.419 Encounter for gynecological examination (general) (routine) without abnormal findings (principal)
CPT/HCPCS: 36415; 83036

== ENCOUNTER → 2023-07-01 | Outpatient (CLI) | payer OTHER, SELFPAY ==
--- NOTE | 2023-07-01 08:23 | BI_ITS ---
MAMMOGRAPHY - BILATERAL SCREENING REASON FOR EXAM: Female, 48 years old. Routine annual screening examination. PERTINENT HISTORY: Non-contributory. History of prior left stereotactic breast biopsy and left excisional breast biopsy. TECHNIQUE: Digital bilateral breast emily (3D mammographic acquisition) in the CC and MLO projections. 2-D mediolateral oblique (MLO) and craniocaudad (CC) views of both breasts were obtained. CAD: Full Field Digital Mammography with Computer Added Detection was performed. COMPARISON: Comparison is made with prior study dated June 30, 2022. FINDINGS: Breast Composition: The breasts are heterogeneously dense, which may obscure small masses. There are no dominant masses or suspicious calcifications. The previously seen nodule in the upper slightly outer aspect of the right breast has decreased in size. It presently measures 1 cm x 1.4 cm. Prior sonogram demonstrated this to be a cyst. A tissue clip marker is once again seen within the tiny nodule in the axillary region of the left breast. No other significant abnormalities are identified. BI/SCRN MAMM (CAD)W/EMILY BILAT IMPRESSION: Interval decrease in size of the nodular density in the right breast as compared to prior study. This was demonstrated to be a small cyst on prior sonogram.. Yearly follow-up mammogram recommended. (A) ASSESSMENT CATEGORY: BIRADS Category 2: Benign. A letter regarding these results will be sent to the patient by the facility within 30 days. Approximately 10% of breast cancers are not detected by mammography. A normal mammogram should not delay biopsy of a clinically suspicious abnormality. [id number] Electronically Signed: Marcelo Webber MD at 15:25 EDT ,
== END | disposition home or self-care (01) ==
LOC: OPBI 08:21
PROVIDERS: PCP Family Medicine; Referring Provider Family Medicine; Visit Provider Family Medicine
DX: Z12.31 Encounter for screening mammogram for malignant neoplasm of breast (principal)
CPT/HCPCS: 77063; 77067

== ENCOUNTER → 2023-07-13 | Outpatient (CLI) | payer OTHER, SELFPAY ==
[2023-07-13 11:51] LABS: Hematocrit 45.2 % (37-47); Hemoglobin 13.9 g/dL (12.0-15.0); Mean Corp Hgb Conc 30.8 g/dL (32-36); Mean Corpuscular Hgb 29.3 pg (27.0-32.0); Mean Corpuscular Volume 95.2 fL (81-99); Mean Platelet Vol. 9.4 fl (6.2-12.0); Platelet Count 285 K/mm3 (150-450); RBC Distribution Width SD 49.1 fl (35.1-43.9); Red Blood Count 4.75 M/mm3 (4.2-5.4); White Blood Count 8.2 K/mm3 (4.4-11.0)
[2023-07-13 12:06] LABS: Anion Gap 4 (5-15); BUN 22 mg/dL (7-18); BUN/Creat Ratio 18.6 RATIO (10-20); Calcium,Total 8.5 mg/dL (8.5-10.1); Chloride 107 mmol/L (98-107); Cholesterol 162 mg/dL (200); Creatinine, Serum 1.18 mg/dL (0.55-1.02); EST Glomerular Filtration Rate 52 mL/min (>60); Est Glom Filt Rate - Afr Amer 62 mL/min (>60); Glucose 94 mg/dL (74-106); High Density Lipoprotein 51 mg/dL; Potassium 3.9 mmol/L (3.5-5.1); Sodium Level 139 mmol/L (136-145); Triglycerides 95 mg/dL; Very Low Density Lipoprotein 19 mg/dL (5-40)
[2023-07-13 12:08] LABS: Vitamin D,25 Hydroxy 37.1 ng/mL
[2023-07-13 15:12] LABS: Protein, Urine (Random) 8.2 mg/dL (<11.9); Protein:Creat Ratio 64 mg/g CRE (0-200)
== END | disposition home or self-care (01) ==
LOC: LAB.FUTURE 11:43 → LAB 07-14 09:36
PROVIDERS: PCP Family Medicine; Referring Provider Internal Medicine Nephrology; Visit Provider Internal Medicine Nephrology
DX: N18.30 Chronic kidney disease, stage 3 unspecified (principal)
CPT/HCPCS: 36415; 80048; 80061; 82306; 82570; 84156; 85027

== ENCOUNTER 2023-08-05 07:55 | Day surgery (SDC) | payer OTHER, SELFPAY ==
[2023-08-05] VITALS (7 sets, daily range): BP systolic 90–110; BP diastolic 60–72; PULSE 74–110; RESP 16–18; TEMP 36.4–36.9; O2SAT 97–100; BMI 29.0
--- NOTE | 2023-08-05 | COLBX_PTH ---
PATIENT: TIFFANIE MILLS LOC: EN U#:[id number] AGE/SX: 48/F ROOM: RE08/05/[address]: Dr. Solomon Chery MD : 1975 BED: DIS: 08/05/2023 SPEC #: [id number] RECD: 08/05/23 10:54 STATUS: NETO REBridgette #: [id number] EVE: 08/05/23 00:[address]: Solomon Chery DEPT: SURGICAL PATHOLOGY RECD BY: Jose Miguel Rios ENTERED: 08/05/23 10:55 SP TYPE: COLON BX OTHR DR: Dr. Raoul Lam MD Tissues: Rectum, NOS Procedures: Surgery Specimen Level IV HEADER OPERATION: Colonoscopy - open access, biopsy PRE-OP DIAGNOSIS: Screening TISSUE SUBMITTED: Proximal rectum polyp biopsy MICROSCOPIC DIAGNOSIS Proximal rectal polyp, biopsy: Fragments of hyperplastic polyp. AM:neena 08/08/2023 MICROSCOPIC DESCRIPTION Slides are reviewed. GROSS DESCRIPTION Received in fixative is one container labeled with the patient's name and designated proximal rectal polyp. The specimen consists of multiple irregular fragments of light borges soft tissue that in aggregate measure 0.8 x 0.3 x 0.1 cm. The specimen is totally submitted in one cassette. / AM:neena 08/05/2023 TC:5 CPT: 73110
[2023-08-05] MEDS: Lactated Ringers 1,000 ML 15 ML IV (08:28)
[2023-08-05 08:44] LABS: Internal QC Validated? YES +Cl - CLEAR BKGD; Pregnancy, Urine Negative Negative; Record Kit Lot#,Urine Preg 667200
--- NOTE | 2023-08-05 08:51 | PCM.HP.STD ---
[facility] - General General Date of Service: 08/05/23 Chief Complaint: Screening for intestinal cancer [facility] Narrative TIFFANIE MILLS, is a 48 F who presents for screening colonoscopy. She presents via open access. On medical problem is stage III chronic renal disease. She has not had a previous colonoscopy. She denies abdominal pain bright red blood per rectum or melena. No unexpected weight loss. No history of DVT. [facility] Medical History (Updated 08/02/23 @ 15:40 by Melody Staley) Chronic kidney disease Kidney disease Migraine headache Non-smoker Wears glasses Home Medications desogestrel 0.15 mg-ethinyl estradiol 0.03 mg tablet 1 tab PO DAILY 11/29/17 [History Last Taken Unknown] Allergy/AdvReac Type Severity Reaction Status Date / Time oxycodone [From Percocet] Allergy Itching Verified 06/07/23 10:31 Surgical History History of appendectomy Hx of left breast biopsy Social History (Updated 06/07/23 @ 10:30 by Jenn Branch) household members: spouse current occupational status: employed current occupation: [employer], [employer] Smoking Status: Never smoker alcohol intake: never ROS Constitutional Constitutional: Reports systems reviewed and no addt'l complaints, except as documented Cardiovascular Cardiovascular: Denies chest pain Respiratory/Chest Respiratory/Chest: Denies shortness of breath at rest Gastrointestinal Gastrointestinal: Denies abdominal pain, change in bowel habits, hematochezia or melena Vital Signs Vital Signs Vital Signs: 08/05/23 08:29 08/05/23 08:30 Temperature 98.5 F Temperature Source Temporal Pulse Rate 110 H Respiratory Rate 18 Respiratory Pattern Normal Blood Pressure 107/65 Blood Pressure Mean 79 Blood Pressure Source Monitor Blood Pressure Position Semi-Fowlers Blood Pressure Location Right Arm Pulse Ox 99 Oxygen Delivery Method Room Air Weight Weight: 164 lb Body Mass Index (BMI) 29.0 Physical Exam Const alert, oriented x3 and no apparent distress General Appearance: cooperative and comfortable Eyes General Eye: normal appearance of both eyes Neck General: normal visual inspection Chest inspection of chest normal Resp Effort and Inspection: able to speak in complete sentences and symmetric chest movement Auscultation: clear to auscultation bilaterally Cardio regular rate and regular rhythm GI soft to palpation, non-tender and non-distended Extremity no calf tenderness Neuro oriented x3 Psych thought process normal Results Lab / Micro Data Labs: Laboratory Results - last 24 hr 08/05/23 08:24: Urine Test Negative Assessment & Plan Assessment/Plan (1) Encounter for screening for malignant neoplasm of colon: PLAN: The patient presents today via open access for screening colonoscopy with possible biopsy or polypectomy as indicated. She is aware of the technique, benefit, risk, alternatives. She has had an opportunity to ask and have questions answered. We will proceed as noted. Solomon Chery M.D., F.A.C.S.
--- NOTE | 2023-08-05 09:19 | OP.CCLET_ITS ---
08/05/2023 Ki Lam [address] [place] [address] Re : Colonoscopy procedure for Lyla Gan Dear Dr. Lam This procedure was performed on Saturday, August 05, 2023. My impressions and recommendations are as follows: Impressions : - Non-thrombosed internal hemorrhoids and internal hemorrhoids (Grade I) found on digital rectal exam. - One 3 mm polyp in the rectum, removed with a cold biopsy forceps. Resected and retrieved. - The examination was otherwise normal. Recommendations : - Discharge patient to home. - Resume previous diet. - Continue present medications. - Repeat colonoscopy in 5 years for surveillance pending pathology. - Telephone my office for pathology results in 1 week. My findings are described in the full procedure note, which is enclosed. If I can be of further assistance, please feel free to contact me at Doctor phone number(s): Work: . Sincerely, Solomon Chery MD 08/05/2023 9:19:00 AM This report has been signed electronically.
--- NOTE | 2023-08-05 09:19 | OP.COLON_ITS ---
Patient Name: Lyla Gan Procedure Date: 08/05/2023 8:48 AM Date of : 1975 Age: 48 Procedure: Colonoscopy Indications: Screening for colorectal malignant neoplasm Providers: Solomon Chery MD Referring MD: Ki Lam Medicines: See the Anesthesia note for documentation of the administered medications Patient Profile: Last Colonoscopy: none. The patient's first colonoscopy is today. Complications: No immediate complications. Procedure: Pre-Anesthesia Assessment: - Prior to the procedure, a History and Physical was performed, and patient medications and allergies were reviewed. The patient's tolerance of previous anesthesia was also reviewed. The risks and benefits of the procedure and the sedation options and risks were discussed with the patient. All questions were answered, and informed consent was obtained. Prior Anticoagulants: The patient has taken no anticoagulant or antiplatelet agents. ASA Grade Assessment: II - A patient with mild systemic disease. After reviewing the risks and benefits, the patient was deemed in satisfactory condition to undergo the procedure. After I obtained informed consent, the scope was passed under direct vision. Throughout the procedure, the patient's blood pressure, pulse, and oxygen saturations were monitored continuously. The Colonoscope was introduced through the anus and advanced to the ileocecal valve. The colonoscopy was performed without difficulty. The patient tolerated the procedure well. The quality of the bowel preparation was good. The ileocecal valve and the appendiceal orifice were photographed. Scope In: 8:57:00 AM Scope Withdrawal Time 0 hours 11 minutes 35 seconds Scope Out: 9:13:54 AM Total Procedure Duration Time 0 hours 16 minutes 54 seconds Findings: The digital rectal exam findings include non-thrombosed internal hemorrhoids and internal hemorrhoids (Grade I). A 3 mm polyp was found in the rectum. The polyp was sessile. The polyp was removed with a cold biopsy forceps. Resection and retrieval were complete. The exam was otherwise without abnormality. Impression: - Non-thrombosed internal hemorrhoids and internal hemorrhoids (Grade I) found on digital rectal exam. - One 3 mm polyp in the rectum, removed with a cold biopsy forceps. Resected and retrieved. - The examination was otherwise normal. Recommendation: - Discharge patient to home. - Resume previous diet. - Continue present medications. - Repeat colonoscopy in 5 years for surveillance pending pathology. - Telephone my office for pathology results in 1 week. Procedure Code(s): --- Professional --- 52883, Colonoscopy, flexible; with biopsy, single or multiple Diagnosis Code(s): --- Professional --- Z12.11, Encounter for screening for malignant neoplasm of colon K64.0, First degree hemorrhoids D12.8, Benign neoplasm of rectum CPT copyright 2021 [employer]. All rights reserved. The codes documented in this report are preliminary and upon case resolution specialist review may be revised to meet current compliance requirements. Solomon Chery MD 08/05/2023 9:19:00 AM This report has been signed electronically. Number of Addenda: 0 Note Initiated On: 08/05/2023 8:48 AM
== END 2023-08-05 10:03 | disposition home or self-care (01) ==
LOC: EN 07:56 → AC 07:57
PROVIDERS: Anesthesiology; PCP Family Medicine; Referring Provider Family Medicine; Visit Provider Surgery
PROC: 0DJD8ZZ Inspection of Lower Intestinal Tract, Via Natural or Artificial Opening Endoscopic (ICD-10-PCS; CPT 45378; principal; 2023-08-05 08:55)
DX: Z12.11 Encounter for screening for malignant neoplasm of colon (principal); N18.30 Chronic kidney disease, stage 3 unspecified; K64.0 First degree hemorrhoids; K62.1 Rectal polyp; Z90.49 Acquired absence of other specified parts of digestive tract
CPT/HCPCS: 45380; 81025; 88305; J7120; J2405

== ENCOUNTER → 2024-07-02 | Outpatient (CLI) | payer OTHER, SELFPAY ==
--- NOTE | 2024-07-02 15:08 | BI_ITS ---
MAMMOGRAPHY - BILATERAL SCREENING 3-D TOMOSYNTHESIS REASON FOR EXAM: Female, 48 years old. screen PERTINENT HISTORY: No significant family history. TECHNIQUE: 2-D mammograms and 3-D Tomosynthesis of the breast (s) were performed. CAD was performed. COMPARISON: 07/01/2023 FINDINGS: The breast composition is heterogeneously dense that can obscure small breast masses. Scattered benign calcifications are seen. No dominant mass in the right breast. 2 cm oval obscured equal density mass in the upper outer quadrant left breast at posterior depth and focal compression views are recommended for further evaluation. No suspicious calcifications.. No architectural distortion is identified. There is no skin thickening or retraction. BI/SCRN MAMM (CAD)W/EMILY BILAT IMPRESSION: Further imaging evaluation is recommended. ASSESSMENT CATEGORY: BIRADS Category 0: Incomplete. Need additional imaging evaluation as above. A letter regarding these results will be sent to the patient by the facility within 30 days. FOLLOW UP RECOMMENDATION: Additional imaging recommended as above. (E) Approximately 10% of breast cancers are not detected by mammography. A normal mammogram should not delay biopsy of a clinically suspicious abnormality. Electronically Signed: Rolo Vazquez MD at 8:38 EDT ,
== END | disposition home or self-care (01) ==
LOC: OPBI 15:08
PROVIDERS: PCP Family Medicine; Referring Provider Nurse Practitioner Women's Health; Visit Provider Nurse Practitioner Women's Health
DX: Z12.31 Encounter for screening mammogram for malignant neoplasm of breast (principal)
CPT/HCPCS: 77063; 77067

== ENCOUNTER → 2024-07-03 | Outpatient (CLI) | payer OTHER, SELFPAY ==
--- NOTE | 2024-07-03 14:21 | BI_ITS ---
MAMMOGRAPHY - UNILATERAL DIAGNOSTIC: RIGHT BREAST REASON FOR EXAM: Female, 48 years old. BILAT AVS ABN MAMM- PERTINENT HISTORY: Non-contributory. TECHNIQUE: Digital examination. Mediolateral oblique (MLO) and craniocaudad (CC) views of the breast were obtained. CAD: CAD was not performed on this study. COMPARISON: 07/02/2024 FINDINGS: Breast Composition: The breasts are heterogeneously dense, which may obscure small masses. Focal compression views confirm a 2 cm oval circumscribed equal density mass in the upper-outer quadrant left breast posterior depth and ultrasound is recommended for further evaluation. No other significant abnormalities are identified. BI/DIAG MAMM W/CAD, UNILAT IMPRESSION: Further ultrasonographic evaluation recommended, as described above. ASSESSMENT CATEGORY: BIRADS Category 0: Incomplete. Need additional imaging evaluation. A letter regarding these results will be sent to the patient by the facility within 30 days. FOLLOW-UP RECOMMENDATION: Ultrasound recommended. (I) Approximately 10% of breast cancers are not detected by mammography. A normal mammogram should not delay biopsy of a clinically suspicious abnormality. Electronically Signed: Rolo Vazquez MD at 10:16 EDT ,
--- NOTE | 2024-07-03 14:21 | US_ITS ---
STUDY: ULTRASOUND BREAST - RIGHT REASON FOR EXAM: Female, 48 years old. Abnormal screening mammogram. TECHNIQUE: Axial and longitudinal images of the RIGHT breast were performed with a high resolution ultrasound transducer. # OF IMAGES: 6 COMPARISON: Diagnostic mammogram earlier today, screening mammogram 07/02/2024 FINDINGS: RIGHT Breast: Heterogeneous background echotexture. At 11:00, 4 cm from nipple, ultrasound confirms an 8 mm round parallel circumscribed anechoic mass with posterior enhancement consistent with a cyst within dense breast parenchyma most consistent with fibrocystic change.: US/Breast Limited Unilateral IMPRESSION: Ultrasound confirms an 8 mm cyst within fibrocystic change. ASSESSMENT CATEGORY: BIRADS Category 2: Benign. A letter regarding these results will be sent to the patient by the facility within 30 days. Electronically Signed: Rolo Vazquez MD at 8:38 EDT ,
== END | disposition home or self-care (01) ==
LOC: OPBI 14:19
PROVIDERS: PCP Family Medicine; Referring Provider Nurse Practitioner Women's Health; Visit Provider Nurse Practitioner Women's Health
DX: R92.8 Other abnormal and inconclusive findings on diagnostic imaging of breast (principal)
CPT/HCPCS: 76642; 77065

== ENCOUNTER → 2024-08-28 | Outpatient (CLI) | payer OTHER, SELFPAY ==
[2024-08-28 05:59] LABS: Hematocrit 44.2 % (37-47); Hemoglobin 14.2 g/dL (12.0-15.0); Mean Corp Hgb Conc 32.1 g/dL (32-36); Mean Corpuscular Hgb 29.2 pg (27.0-32.0); Mean Corpuscular Volume 90.8 fL (81-99); Mean Platelet Vol. 9.1 fl (6.2-12.0); Platelet Count 304 K/mm3 (150-450); RBC Distribution Width CV 13.9 % (11.6-14.6); RBC Distribution Width SD 46.4 fl (35.1-43.9); Red Blood Count 4.87 M/mm3 (4.2-5.4)
[2024-08-28 06:39] LABS: Albumin, Serum 3.5 g/dL (3.2-5.0); BUN 24 mg/dL (7-18); BUN/Creat Ratio 18.6 RATIO (10-20); Calcium,Total 8.6 mg/dL (8.5-10.1); Chloride 109 mmol/L (98-107); Cholesterol 159 mg/dL (200); Creatinine, Serum 1.29 mg/dL (0.55-1.02); EST Glomerular Filtration Rate 46 mL/min (>60); Est Glom Filt Rate - Afr Amer 56 mL/min (>60); Glucose 107 mg/dL (74-106); High Density Lipoprotein 51 mg/dL; Phosphorus 3.3 mg/dL (2.5-4.9); Sodium Level 140 mmol/L (136-145); Triglycerides 110 mg/dL; Very Low Density Lipoprotein 22 mg/dL (5-40)
[2024-08-28 15:08] LABS: Protein, Urine (Random) < 6.0 mg/dL (<11.9)
[2024-08-29 06:09] LABS: V-Zoster IgG (Immunity) Reactive (Non Reactive)
== END | disposition home or self-care (01) ==
LOC: LAB.FUTURE 05:35 → LAB 05:58
PROVIDERS: PCP Family Medicine; Referring Provider Internal Medicine Nephrology; Visit Provider Internal Medicine Nephrology
DX: N04.1 Nephrotic syndrome with focal and segmental glomerular lesions (principal); N18.31 Chronic kidney disease, stage 3a; R31.21 Asymptomatic microscopic hematuria
CPT/HCPCS: 36415; 80061; 80069; 82570; 84156; 85027; 86787

== ENCOUNTER → 2025-05-27 | Outpatient (CLI) | payer OTHER, SELFPAY ==
[2025-05-27 10:17] LABS: Follicle Stimulating Hormone 22.7 mIU/mL
[2025-05-29 23:07] LABS: Anti-Mullerian Hormone,Serum < 0.015 ng/mL (.)
== END | disposition home or self-care (01) ==
LOC: LAB 09:04
PROVIDERS: PCP Family Medicine; Referring Provider Nurse Practitioner Women's Health; Visit Provider Nurse Practitioner Women's Health
DX: N95.1 Menopausal and female climacteric states (principal)
CPT/HCPCS: 36415; 82670; 83001; 83516

== ENCOUNTER → 2025-06-07 | Outpatient (CLI) | payer OTHER, SELFPAY ==
[2025-06-07 05:55] LABS: Hematocrit 42.2 % (37-47); Hemoglobin 13.7 g/dL (12.0-15.0); Mean Corp Hgb Conc 32.5 g/dL (32-36); Mean Corpuscular Volume 90.0 fL (81-99); Mean Platelet Vol. 9.0 fl (6.2-12.0); Platelet Count 292 K/mm3 (150-450); RBC Distribution Width CV 13.8 % (11.6-14.6); RBC Distribution Width SD 45.1 fl (35.1-43.9); Red Blood Count 4.69 M/mm3 (4.2-5.4); White Blood Count 7.3 K/mm3 (4.4-11.0)
[2025-06-07 06:48] LABS: AST(SGOT) 14 U/L (<=31); Alanine Aminotransfer ALT/SGPT 14 U/L (<=34); Albumin, Serum 3.9 g/dL (3.5-5.0); Alkaline Phosphatase 102 U/L (35-104); Anion Gap 10 (5-15); BUN 17 mg/dL (4-19); BUN/Creat Ratio 14.8 RATIO (10-20); Calcium,Total 8.8 mg/dL (7.6-11.0); Carbon Dioxide 24.1 mmol/L (21.0-32.0); Chloride 106 mmol/L (98-108); Cholesterol 146 mg/dL (<=200); Globulin 2.8 g/dL (2.2-4.2); Glucose 101 mg/dL (70-99); Low Density Lipoprotein Calc. 74 mg/dL; Potassium 4.1 mmol/L (3.3-5.1); Triglycerides 100 mg/dL; Very Low Density Lipoprotein 20 mg/dL (5-40); Vitamin D,25 Hydroxy 29.2 ng/mL (30-100); cholesterol:hdl ratio screen 2.79
[2025-06-07 07:02] LABS: Iron 130 ug/dL (50-170)
[2025-06-07 15:02] LABS: Color, Urine Straw (Yellow); Glucose, Dipstick Normal (Normal); Ketone-Dipstick Negative (Negative); Leukocyte Esterase-Dipstick Negative /ul (Negative); Nitrite-Dipstick Negative (Negative); Occult Blood-Urine 50 /ul (Negative); Protein-Dipstick Negative (Negative); Specific Gravity, Urine 1.010 (1.002-1.030); Urine Bilirubin Dipstick Negative (Negative)
== END | disposition home or self-care (01) ==
PROVIDERS: PCP Family Medicine; Referring Provider Family Medicine; Visit Provider Family Medicine
DX: Z00.00 Encounter for general adult medical examination without abnormal findings (principal); N18.9 Chronic kidney disease, unspecified; Z13.29 Encounter for screening for other suspected endocrine disorder
CPT/HCPCS: 36415; 80053; 80061; 81002; 82306; 83540; 84443; 85027

== ENCOUNTER → 2025-07-04 | Outpatient (CLI) | payer OTHER, SELFPAY ==
--- NOTE | 2025-07-04 15:15 | BI_ITS ---
EXAM: SCRN MAMM (CAD)W/EMILY BILAT DATE: 07/04/2025 CLINICAL HISTORY: F, Age 49 y/o , SCREEN FOR BREAST CANCER TECHNIQUE: Procedure Code: [id number] Modality: MG Procedure: SCRN MAMM (CAD)W/EMILY BILAT COMPARISON: Prior exam(s) dated 07/03/2024, 07/02/2024, 07/01/2023. FINDINGS: TISSUE DENSITY: The breasts are heterogeneously dense, which may obscure small masses. The mammogram demonstrates that the patient has dense breasts. Supplemental screening with whole breast ultrasound or MRI may be considered for further evaluation. Bilateral Breast Mammographic Findings: No significant masses, calcifications or other abnormalities are identified. BI/SCRN MAMM (CAD)W/EMILY BILAT IMPRESSION: There is no mammographic evidence of malignancy. OVERALL FINAL ASSESSMENT BI-RADS 1: NEGATIVE. RECOMMENDATION: Routine annual follow-up in 1 Year Additional Recommendation none A letter with findings and recommendations will be mailed to the patient. Reading Location: [id number]
--- NOTE | 2025-07-04 15:15 | BI_ITS ---
EXAM: SCRN MAMM (CAD)W/EMILY BILAT DATE: 07/04/2025 CLINICAL HISTORY: F, Age 49 y/o , SCREEN FOR BREAST CANCER TECHNIQUE: Procedure Code: [id number] Modality: MG Procedure: SCRN MAMM (CAD)W/EMILY BILAT COMPARISON: Prior exam(s) dated 07/03/2024, 07/02/2024, 07/01/2023. FINDINGS: TISSUE DENSITY: The breasts are heterogeneously dense, which may obscure small masses. The mammogram demonstrates that the patient has dense breasts. Supplemental screening with whole breast ultrasound or MRI may be considered for further evaluation. Bilateral Breast Mammographic Findings: No significant masses, calcifications or other abnormalities are identified. BI/SCRN MAMM (CAD)W/EMILY BILAT IMPRESSION: There is no mammographic evidence of malignancy. OVERALL FINAL ASSESSMENT BI-RADS 1: NEGATIVE. RECOMMENDATION: Routine annual follow-up in 1 Year Additional Recommendation none A letter with findings and recommendations will be mailed to the patient. Reading Location: [id number]
== END | disposition home or self-care (01) ==
LOC: OPBI 15:03
PROVIDERS: PCP Family Medicine; Referring Provider Nurse Practitioner Women's Health; Visit Provider Nurse Practitioner Women's Health
DX: Z12.31 Encounter for screening mammogram for malignant neoplasm of breast (principal)
CPT/HCPCS: 77063; 77067

== ENCOUNTER → 2025-08-26 | Outpatient (CLI) | payer OTHER, SELFPAY ==
[2025-08-26 10:11] LABS: Hematocrit 42.7 % (37-47); Hemoglobin 14.0 g/dL (12.0-15.0); Immature Granulocytes Count 0.020 X10^3/uL (0.0-0.0); Mean Corp Hgb Conc 32.8 g/dL (32-36); Mean Corpuscular Volume 89.9 fL (81-99); Mean Platelet Vol. 9.1 fl (6.2-12.0); NRBC Flagged by Analyzer 0 % (0-5); Platelet Count 299 K/mm3 (150-450); RBC Distribution Width CV 13.6 % (11.6-14.6); RBC Distribution Width SD 45.2 fl (35.1-43.9); Red Blood Count 4.75 M/mm3 (4.2-5.4); White Blood Count 10.0 K/mm3 (4.4-11.0)
[2025-08-26 11:11] LABS: Syphilis Antibodies Nonreactive (Nonreactive)
[2025-08-29 11:08] LABS: Angiotensin Convert Enzyme 65 U/L (14-82)
== END | disposition home or self-care (01) ==
PROVIDERS: PCP Family Medicine
DX: H47.213 Primary optic atrophy, bilateral (principal)
CPT/HCPCS: 36415; 82164; 85025; 85652; 86038; 86431; 86780

== ENCOUNTER → 2025-09-13 | Outpatient (CLI) | payer OTHER, SELFPAY ==
--- NOTE | 2025-09-13 13:17 | MRI_ITS ---
PROCEDURE: BRAIN W/WO CONTRAST 09/13/2025 REASON FOR EXAM: BILATERAL OPTIC ATROPHY TECHNIQUE: Procedure Code: [id number] Modality: MR Procedure: BRAIN W/WO CONTRAST Multiplanar and multisequence images were obtained. CONTRAST: Clariscan VOLUME: 50 mL COMPARISON: None. FINDINGS: Brain: A few foci of hyperintense signal on T2 and FLAIR in the white matter which are nonspecific but most likely T2 chronic small-vessel ischemia. No restricted diffusion. No abnormal enhancement. No mass-effect or midline shift. The craniocervical junction is unremarkable. The orbits are within normal limits. The cerebellopontine angles are unremarkable without abnormal enhancement or masses. Diffusion: No restricted diffusion. Ventricles: No ventriculomegaly. Major Intracranial Vessels: Patent. Sinuses: Clear. Mastoids: Clear. Other: MRI/Brain W/WO Contrast IMPRESSION: A few foci of hyperintense signal on T2 and FLAIR in the white matter which are nonspecific but most likely T2 chronic small-vessel ischemia. Otherwise, unremarkable MRI of the orbit and cerebellopontine angles. No acute brain abnormalities. Reading Location: [facility]
== END | disposition home or self-care (01) ==
LOC: MRI 13:15
PROVIDERS: PCP Family Medicine
DX: H47.20 Unspecified optic atrophy (principal)
CPT/HCPCS: 70553; A9575